=== PATIENT | female | born 1955 | race Caucasian/White ===

== ENCOUNTER 2019-06-21 15:45 | Emergency (ER) | payer BC ==
[~2019-06-21] VITALS: Ht 160 cm; Wt 113.4 kg
[2019-06-21] MEDS ORDERED: ZOFRAN ODT4 MG DISSOLVE (17:42)
[2019-06-21] MEDS ORDERED: NORCO 5-325 TA1 EAC1 PO (17:42)
[2019-06-21] MEDS ORDERED: NAPROSYN500 MG PO (17:42)
[2019-06-21 18:18] VITALS: BP 168/62
== END 2019-06-21 18:19 | disposition home or self-care (01) ==
LOC: ER 15:45
DX: S32.2XXA Fracture of coccyx, initial encounter for closed fracture (principal); K21.9 Gastro-esophageal reflux disease without esophagitis; F32.9 Major depressive disorder, single episode, unspecified; Z90.711 Acquired absence of uterus with remaining cervical stump; Z87.442 Personal history of urinary calculi; W18.39XA Other fall on same level, initial encounter; Y93.89 Activity, other specified; Y92.89 Other specified places as the place of occurrence of the external cause; Y99.8 Other external cause status

== ENCOUNTER → 2019-12-29 | Outpatient (CLI) | payer BC ==
[~2019-12-29] MED LIST: NAPROSYN500 MG PO; NORCO 5-325 TA1 EAC1 PO; ZOFRAN ODT4 MG DISSOLVE
== END ==
LOC: LAB 13:41
PROVIDERS: ATTEND Family Medicine
DX: R05 Cough (principal); Z20.828 Contact with and (suspected) exposure to other viral communicable diseases